=== PATIENT | male | born 1950 | race Caucasian/White ===

== ENCOUNTER 2018-09-27 15:22 | Emergency (ER) | payer MEDICARE, SELFPAY ==
[2018-09-27 15:25] VITALS: BP 154/88; PULSE 89; RESP 20; TEMP 36.9; O2SAT 97
--- NOTE | 2018-09-27 16:01 | W.ED.GENAD ---
Discharge Plan Disposition Patient Disposition: HOME Condition: Good Discharge Details Chief Complaint: Laceration Clinical Impression: Laceration Primary Care Provider: Beulah Gilliam ED Provider: Everette Henry Home Meds and New Rx's Prescriptions: No Action No Known Home Meds RF: 0 Discharge Instructions Instructions: Laceration (ED) Additional Instructions: Please leave the dressing on for 24 hours, then you may remove and begin cleaning the wound at least twice a day with soap and water. Do not directly soak the area. Watch for any signs of infection and return if any increasing redness, swelling, pain, drainage. Please return in the next 7-10 days for removal of the sutures. if you notice any worsening of your symptoms, or any new symptoms such as vomiting, diarrhea, fever, chills, shortness of breath, chest pain, numbness, weakness, or fainting , please return immediately to the emergency department for reevaluation. Please follow up with your primary care provider as soon as possible for reassessment and reevaluation. As always, it was a pleasure participating in your medical care today. Referrals: Beulah Gilliam MD, [place] [Primary Care Provider] - Medical Decision Making This is a 67-year-old male who is [id number] who presents for laceration of his left hand over the hyperthenar eminence. It occurred with a nail, a small 2 cm linear laceration is noted over the hyperthenar eminence, no evidence of neurovascular compromise or tendon injury or weakness. The wound was anesthetized with 3 cc of lidocaine without epinephrine, copious amounts of irrigation were then used, no evidence of foreign bodies or retained metal or fragments. The area was scrubbed vigorously with chlorhexidine. The area was then sutured with 3 simple interrupted sutures using 5-0 nylon. Patient tolerated this well. Patient will be discharged home, red flags were discussed for which to immediately return. I have extensively reviewed the treatment plan and discharge instructions with the patient. I have addressed all patient concerns at this time. The patient was made aware of what symptoms to monitor for that would warrant a return to the emergency department. Discussed the plan with the patient, they demonstrate verbal understanding and agreement with our assessment and plan at this time. HPI General Date/Time Provider Initiated Documentation: 09/27/18 15:23. HPI Narrative: This is a 67-year-old male who is [id number] who presents today for laceration of his left hand over the medial aspect. He states that 1 hour prior to arrival he was working outside when a piece of nail cut his left hand. Bleeding was controlled with pressure. He has no associated numbness, tingling, or weakness. He is not on blood thinners. He denies any other complaints at this time. No other associated symptom. Related Data Home Medications Medication Instructions Recorded Confirmed Unknown [No Known Home Meds] 09/27/18 09/27/18 Allergies Allergy/AdvReac Type Severity Reaction Status Date / Time Penicillins Allergy Anaphylaxsi Unverified 09/27/18 15:28 s General Stated Complaint: Laceration DOROTA: 3 Review of Systems Review of Systems All systems reviewed & are unremarkable except as noted in HPI and below PFSH Social History Smoking/Tobacco Use Status: Former Tobacco Use Alcohol Intake: current Alcohol Intake frequency: a few times a month Substance use type: does not use Exam Narrative Exam Narrative: 1.Const: Well-nourished, Well-developed, appearing stated age 2.Eyes: PERRL, no conjunctival injection, and symmetrical lids. 3.ENT: Atraumatic external nose and ears. Moist MM. Neck: Symmetric, trachea midline, No thyromegaly. 4.CVS: +S1/S2, No murmurs or gallops. Peripheral pulses 2+ and equal in all extremities. Brisk capillary refill in all extremities. 5.RESP: Unlabored respiratory effort. Clear to auscultation bilaterally. No wheezes rales or rhonchi 6.GI: Soft, Nontender/Nondistended, No hepatosplenomegaly. No guarding or rebound. 7.MSK: Normocephalic, Extremities w/o deformity or ttp No cyanosis or clubbing, Normal movement of all extremities. Left hand demonstrates a 2 cm laceration over the medial aspect of the hyperthenar eminence. It is linear in nature, notably superficial, no involvement of the deep tendon or muscular structures. Minimal active oozing, distal to the site the patient demonstrates normal two-point discrimination, normal flexion and extension at all joints of the fifth fourth and third digits. Brisk capillary refill, normal exam. No signs of neurovascular deficit. 8.Skin: Warm, Dry. No rashes or lesions. 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 Sensation grossly intact, no focal neurologic deficits. 10.Psych: (AAO) x3. Appropriate mood and affect Course Vital Signs Temperature 36.9 C 09/27/18 15:25 Pulse 89 09/27/18 15:25 Respiratory Rate 20 09/27/18 15:25 Blood Pressure 154/88 H 09/27/18 15:25 Pulse Oximetry 97 09/27/18 15:25 Temperature 36.9 C 09/27/18 15:25 Temperature Source Temporal Artery Scan 09/27/18 15:25 Pulse 89 09/27/18 15:25 Respiratory Rate 20 09/27/18 15:25 Respiratory Effort Non-Labored 09/27/18 15:25 Blood Pressure 154/88 H 09/27/18 15:25 Pulse Oximetry 97 09/27/18 15:25 Oxygen Delivery Method Room Air 09/27/18 15:25 Oxygen Flow Rate 0 09/27/18 15:25 Pain Level 2 09/27/18 15:25
--- NOTE | 2018-09-27 16:07 | ED.GENADUL_ITS ---
Discharge Plan Disposition Patient Disposition: HOME Condition: Good Discharge Details Chief Complaint: Laceration Clinical Impression: Laceration Primary Care Provider: Beulah Gilliam ED Provider: Everette Henry Home Meds and New Rx's Prescriptions: No Action No Known Home Meds RF: 0 Discharge Instructions Instructions: Laceration (ED) Additional Instructions: Please leave the dressing on for 24 hours, then you may remove and begin cleaning the wound at least twice a day with soap and water. Do not directly soak the area. Watch for any signs of infection and return if any increasing redness, swelling, pain, drainage. Please return in the next 7-10 days for removal of the sutures. if you notice any worsening of your symptoms, or any new symptoms such as vomiting, diarrhea, fever, chills, shortness of breath, chest pain, numbness, weakness, or fainting , please return immediately to the emergency department for reevaluation. Please follow up with your primary care provider as soon as possible for reassessment and reevaluation. As always, it was a pleasure participating in your medical care today. Referrals: Beulah Gilliam MD, [place] [Primary Care Provider] - Medical Decision Making This is a 67-year-old male who is [id number] who presents for laceration of his left hand over the hyperthenar eminence. It occurred with a nail, a small 2 cm linear laceration is noted over the hyperthenar eminence, no evidence of neurovascular compromise or tendon injury or weakness. The wound was anesthetized with 3 cc of lidocaine without epinephrine, copious amounts of irrigation were then used, no evidence of foreign bodies or retained metal or fragments. The area was scrubbed vigorously with chlorhexidine. The area was then sutured with 3 simple interrupted sutures using 5-0 nylon. Patient tolerated this well. Patient will be discharged home, red flags were discussed for which to immediately return. I have extensively reviewed the treatment plan and discharge instructions with the patient. I have addressed all patient concerns at this time. The patient was made aware of what symptoms to monitor for that would warrant a return to the emergency department. Discussed the plan with the patient, they demonstrate verbal understanding and agreement with our assessment and plan at this time. HPI General Date/Time Provider Initiated Documentation: 09/27/18 15:23 . HPI Narrative: This is a 67-year-old male who is [id number] who presents today for laceration of his left hand over the medial aspect. He states that 1 hour prior to arrival he was working outside when a piece of nail cut his left hand. Bleeding was controlled with pressure. He has no associated numbness, tingling, or weakness. He is not on blood thinners. He denies any other complaints at this time. No other associated symptom. Related Data Home Medications Medication Instructions Recorded Confirmed Unknown [No Known Home Meds] 09/27/18 09/27/18 Allergies Allergy/AdvReac Type Severity Reaction Status Date / Time Penicillins Allergy Anaphylaxsi Unverified 09/27/18 15:28 s General Stated Complaint: Laceration DOROTA: 3 Review of Systems Review of Systems All systems reviewed & are unremarkable except as noted in HPI and below PFSH Social History Smoking/Tobacco Use Status: Former Tobacco Use Alcohol Intake: current Alcohol Intake frequency: a few times a month Substance use type: does not use Exam Narrative Exam Narrative: 1.Const: Well-nourished, Well-developed, appearing stated age 2.Eyes: PERRL, no conjunctival injection, and symmetrical lids. 3.ENT: Atraumatic external nose and ears. Moist MM. Neck: Symmetric, trachea midline, No thyromegaly. 4.CVS: +S1/S2, No murmurs or gallops. Peripheral pulses 2+ and equal in all extremities. Brisk capillary refill in all extremities. 5.RESP: Unlabored respiratory effort. Clear to auscultation bilaterally. No wheezes rales or rhonchi 6.GI: Soft, Nontender/Nondistended, No hepatosplenomegaly. No guarding or rebound. 7.MSK: Normocephalic, Extremities w/o deformity or ttp No cyanosis or clubbing, Normal movement of all extremities. Left hand demonstrates a 2 cm laceration over the medial aspect of the hyperthenar eminence. It is linear in nature, notably superficial, no involvement of the deep tendon or muscular structures. Minimal active oozing, distal to the site the patient demonstrates normal two- point discrimination, normal flexion and extension at all joints of the fifth fourth and third digits. Brisk capillary refill, normal exam. No signs of neurovascular deficit. 8.Skin: Warm, Dry. No rashes or lesions. 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 Sensation grossly intact, no focal neurologic deficits. 10.Psych: (AAO) x3. Appropriate mood and affect Course Vital Signs Temperature 36.9 C 09/27/18 15:25 Pulse 89 09/27/18 15:25 Respiratory Rate 20 09/27/18 15:25 Blood Pressure 154/88 H 09/27/18 15:25 Pulse Oximetry 97 09/27/18 15:25 Temperature 36.9 C 09/27/18 15:25 Temperature Source Temporal Artery Scan 09/27/18 15:25 Pulse 89 09/27/18 15:25 Respiratory Rate 20 09/27/18 15:25 Respiratory Effort Non-Labored 09/27/18 15:25 Blood Pressure 154/88 H 09/27/18 15:25 Pulse Oximetry 97 09/27/18 15:25 Oxygen Delivery Method Room Air 09/27/18 15:25 Oxygen Flow Rate 0 09/27/18 15:25 Pain Level 2 09/27/18 15:25
== END 2018-09-27 16:14 | disposition home or self-care (01) ==
LOC: ER 16:10
PROVIDERS: Emergency Provider Student in an Organized Health Care Education/Training Program; PCP Family Medicine
DX: S61.412A Laceration without foreign body of left hand, initial encounter (principal); W45.8XXA Other foreign body or object entering through skin, initial encounter
CPT/HCPCS: 12001; 90471